=== PATIENT | female | born 1945 | race Caucasian/White ===

== ENCOUNTER 2017-11-22 16:01 | Emergency (ER) | payer MEDICARE ==
[2017-11-22] MEDS ORDERED: Naprosyn 500 MG PO ONE (16:34)
--- NOTE | 2017-11-22 16:38 | ERPHSYRPT ---
- History of Present Illness Time Seen by Provider: 11/22/17 16:26 Source: patient, family () Patient Subjective Stated Complaint: pt here for earache, stuffynose Triage Nursing Assessment: pt alert, arrived per wc, resp easy, skin w/d pink. no drainage from er Physician History: CC: right earache HX: 72 y/o patient of Dr Coleman with right ear ache all day today. She has hx of wax build up. She used drops today for pain. No fever. Recent URI symptoms. Allergic to motrin but takes alleve and requests one here. Allergies/Adverse Reactions: ibuprofen Adverse Reaction (Verified 11/22/17 16:18) Z-RACHEAL Adverse Reaction (Uncoded 11/22/17 16:18) Home Medications: Metoprolol Tartrate 50 mg [Lopressor 50 MG] 50 mg PO DAILY 03/28/13 [ History] Multivitamins,Therapeutic Tab* [Theragran Multivitamin] 1 tab PO DAILY [History] Leopold-3 Fatty Acids/Fish Oil [Fish Oil 1,000 mg Capsule] 1,200 mg PO DAILY 03/28/13 [History] Simvastatin 20Mg [Zocor 20Mg] 20 mg PO DAILY 03/28/13 [History] Alendronate Sodium 70 mg [Fosamax 70 MG] 70 mg PO UD 03/25/15 [History] Quinapril HCl [Accupril] 5 mg PO DAILY 03/25/15 [History] Alprazolam [Alprazolam] 0.25 mg DAILY 11/22/17 [History] Chlorthalidone [Chlorthalidone] 25 mg DAILY 11/22/17 [History] Hx Tetanus, Diphtheria Vaccination/Date Given: Yes Hx Influenza Vaccination/Date Given: Yes Hx Pneumococcal Vaccination/Date Given: Yes Immunizations Up to Date: Yes - Review of Systems Constitutional: No Fever, No Chills Ears, Nose, & Throat: Ear Pain (right), Nose Congestion, No Ear Discharge Abdominal/Gastrointestinal: No Nausea, No Vomiting Skin: No Rash Neurological: No Headache All Other Systems: Reviewed and Negative - Past Medical History Pertinent Past Medical History: Yes Neurological History: No Pertinent History ENT History: Other Cardiac History: High Cholesterol, Hypertension Respiratory History: Bronchitis Endocrine Medical History: No Pertinent History Musculoskeletal History: No Pertinent History GI Medical History: No Pertinent History History: No Pertinent History Psycho-Social History: No Pertinent History - Past Surgical History Past Surgical History: Yes Musculoskeletal: Orthopedic Surgery Other Surgical History: FOOT SURGERY - Social History Smoking Status: Former smoker Exposure to second hand smoke: No Drug Use: none Patient Lives Alone: No - Female History Hx Last Menstrual Period: post Hx Now: No - Nursing Vital Signs Nursing Vital Signs: Initial Vital Signs Temperature 98.2 F 11/22/17 16:11 Pulse Rate 83 11/22/17 16:11 Respiratory Rate 20 11/22/17 16:11 Blood Pressure 158/72 11/22/17 16:11 O2 Sat by Pulse Oximetry 92 L 11/22/17 16:11 Pain Scale Pain Intensity 9 - Physical Exam General Appearance: alert Eye Exam: bilateral eye: PERRL, EOMI Nasal Exam: normal inspection Throat Exam: pharynx normal Neck Exam: normal inspection, non-tender, supple Cardiovascular/Respiratory Exam: normal breath sounds, regular rate/rhythm Neurologic Exam: alert, oriented x 3, cooperative Skin Exam: warm, dry Comments: left ear wax impaction. Right ear has clear fluid and wax and drainage. Unable to visualize the TM due to drops and wax. No pain with movement of the pinna. - Course Nursing assessment & vital signs reviewed: Yes - Progress Progress Note: 11/22/17 16:38 Will empirically treat amoxil. Gonzalezve. Instr given. Counseled pt/family regarding: diagnosis, need for follow-up - Departure Time of Disposition: 16:38 Departure Disposition: Home Clinical Impression: Right otitis media Qualifiers: Otitis media type: suppurative Chronicity: acute Recurrence: not specified as recurrent Spontaneous tympanic membrane rupture: without spontaneous rupture Qualified Code(s): H66.001 - Acute suppurative otitis media without spontaneous rupture of ear drum, right ear Condition: Stable Critical Care Time: No Referrals: TEMO COLEMAN [Primary Care Provider] - Instructions: Ear Infections (Otitis Media) (DC) Additional Instructions: Rx amoxil to [facility] as directed twice a day. you received on here. Follow up with Dr Coleman as needed. No drops or instruments in the ear. Prescriptions: Amoxicillin [Amoxil] 1 cap PO TID #30 capsule
[2017-11-22 17:04] VITALS: BP 151/60; PULSE 80; O2SAT 98
[2017-11-22] MEDS ORDERED: AMOXIL 500 MG ONE (17:06)
[2017-11-22] MEDS: AMOXIL 500 MG PO ONE (17:07)
== END 2017-11-22 17:03 | disposition home or self-care (01) ==
LOC: ED 16:01
DX: H66.001 Acute suppurative otitis media without spontaneous rupture of ear drum, right ear (principal); I10 Essential (primary) hypertension; Z87.891 Personal history of nicotine dependence
CPT/HCPCS: 99283; A9270-GY

== ENCOUNTER 2019-08-30 07:57 | Day surgery (SDC) | payer MEDICARE, OTHER ==
[2019-08-30] MEDS ORDERED: Lactated Ringers 1,000 ML IV ONE (08:04)
[2019-08-30] MEDS ORDERED: Lactated Ringers 1,000 ML IV SCH (08:30)
[2019-08-30] MEDS ORDERED: SUBLIMAZE 100 MCG/2 ML ONE (09:02)
[2019-08-30] MEDS ORDERED: DIPRIVAN 200 MG/20 ML IV ONE (09:15)
[2019-08-30] MEDS ORDERED: Decadron 4 MG INJ ONE (09:27)
[2019-08-30] MEDS ORDERED: ROBINUL ONE (09:27)
[2019-08-30] MEDS ORDERED: Zofran 4 MG/2 ML VIAL ONE (09:27)
[2019-08-30] MEDS ORDERED: TORAdol 30 mg Injection ONE (09:27)
[2019-08-30 11:45] VITALS: BP 141/77; PULSE 78; O2SAT 94
--- NOTE | 2019-08-31 08:06 | OP ---
SURGERY DATE/TIME: 08/30/2019 0900 PREOPERATIVE DIAGNOSIS: Post-menopausal bleeding with thickened endometrium. POSTOPERATIVE DIAGNOSIS: Post-menopausal bleeding with thickened endometrium with endometrial polyp. PROCEDURE: Hysteroscopy, D&C with MyoSure resection of endometrial polyp. SURGEON: Case Tinajero D.O. TECHNOLOGY ANALYST: communications tech. ANESTHESIA: General sedation. ESTIMATED BLOOD LOSS: Minimal. COMPLICATIONS: None. INDICATIONS: The risks, benefits, indications and alternatives of the procedure were reviewed with the patient prior to procedure. The patient understood the risk of infection, bleeding, bowel injury, bladder injury, ureteral injury, uterine perforation that may be associated with the surgery and desires to have this surgery as a possible need to alleviate her current medical condition. DESCRIPTION OF PROCEDURE AND FINDINGS: At this point the patient is taken to the operating room, given general sedation, placed in dorsal lithotomy position. Prepped and draped in usual sterile fashion. A weighted speculum is then placed in the patient's vagina and the anterior lip of the cervix is grasped with a single tooth tenaculum. Endocervical dilators were advanced to the endocervical canal as a means to dilate the cervix. The uterus at this point was sounded to approximately 6 cm. From this point a 5 mm hysteroscope was then placed into the endocervical region where the fundal region appeared to be within normal limits. However, there appeared to be a 1 x 1 cm frothy polypoid lesion noted at the distal region of the uterus just proximal to the endocervical canal. From this point the MyoSure was then introduced into the channel of the hysteroscope and the MyoSure was used to resect the entire portion of the polypoid lesion and was removed without complication. There was no bleeding that was noted. From this point we viewed the entire uterine cavity and appeared to be within normal limits with no gross abnormalities that were noted. From this point the hysteroscope was then removed. There was a deficit of 213 cc and the cutting time was 1.38 seconds. From this point as mentioned the hysteroscope was removed. EndoCurette had been placed into the fundus of the uterus and curettage was performed in all quadrants of the uterus retrieving a mild to moderate amount of endometrial tissue. After completion of the curettage all instruments were then removed from the uterine cavity. All instruments removed from the vaginal region. The patient was then taken out of the dorsal lithotomy position, was cleaned and was then taken to the recovery room in stable condition. All instruments and laps were accounted for x2.
== END 2019-08-30 11:25 | disposition home or self-care (01) ==
LOC: SDC 07:57
PROVIDERS: ATTEND Obstetrics & Gynecology
DX: N95.0 Postmenopausal bleeding (principal); N84.0 Polyp of corpus uteri; R93.89 Abnormal findings on diagnostic imaging of other specified body structures; I10 Essential (primary) hypertension; Z79.899 Other long term (current) drug therapy
CPT/HCPCS: 58558; 99100; J1100; J1885; J2405; J2704; J3010

== ENCOUNTER 2021-11-21 05:34 | Emergency (ER) | payer MEDICARE, OTHER ==
[2021-11-21] MEDS ORDERED: MORPHINE SULFATE 2 MG INJ ONE (06:13)
[2021-11-21] MEDS ORDERED: Zofran 4 MG/2 ML VIAL ONE (06:13)
--- NOTE | 2021-11-21 06:35 | ERPHSYRPT ---
- History of Present Illness Patient Subjective Stated Complaint: Patient states she awoke at 5am to severe lower abdominal pain. Denies N/V. When asked to show nurse where the pain is, she grabbed and pointed to her right lower abdomen and right groin area. Denies pain moving or radiating anywhere. Triage Nursing Assessment: Patient started to ambulate back to ED holding her right lower abdomen and bending forward. Patient unable to ambulate all of the way back to ED and had to be assisted into a W/C. Patient gaurding right lower abdomen/groin area during assessment, grimacing, and moaning out at times. Patient having trouble concentrating to answer questions during triage but did answer appropriately. Abdomen is soft, non-distended. Timing/Duration: hour(s) (1), constant, sudden, worse Activities at Onset: sleep Quality: sharpness Abdominal Pain Onset Location: RLQ, suprapubic Pain Radiation: groin Severity of Pain-Max: severe Severity of Pain-Current: severe Modifying Factors: Worsens With: palpation, position Associated Symptoms: nausea, No vomiting Previous symptoms: same symptoms as today Hx Tetanus, Diphtheria Vaccination/Date Given: Yes Hx Influenza Vaccination/Date Given: Yes Hx Pneumococcal Vaccination/Date Given: No Immunizations Up to Date: Yes <SHAYY DINERO - Last Filed: 11/21/21 06:46> <SRIRAM WALDEN - Last Filed: 11/21/21 07:38> - History of Present Illness Time Seen by Provider: 11/21/21 06:14 Physician History: 76 years old female presented in the ER with chief complaint of right lower quadrant/suprapubic area pain off and on for almost a month and got worse this morning around 5 AM waking her up from sleep moderate to severe intensity sharp nature with some radiation to the right groin. Patient report associated mild nausea but no vomiting. Denies any urinary symptoms of increased frequency urgency or hesitancy, no hematuria. No fever or chills reported. (SHAYY DINERO) Allergies/Adverse Reactions: ibuprofen Adverse Reaction (Intermediate, Verified 11/21/21 05:42) Nausea Z-RACHEAL Adverse Reaction (Severe, Uncoded 11/21/21 05:42) Nausea and Vomiting Home Medications: Metoprolol Tartrate 50 mg [Lopressor 50 MG] 25 mg PO DAILY 03/28/13 [History] Multivitamins,Therapeutic Tab* [Theragran Multivitamin] 1 tab PO DAILY 03/28/13 [History] Simvastatin 20Mg [Zocor 20Mg] 20 mg PO DAILY 03/28/13 [History] Alendronate Sodium 70 mg [Fosamax 70 MG] 70 mg PO UD 03/25/15 [History] Quinapril HCl [Accupril] 40 mg PO DAILY 03/25/15 [History] Chlorthalidone 25 mg DAILY 11/22/17 [History] Travel Risk - International Travel Have you traveled outside of the country in past 3 weeks: No - Coronavirus Screening Are you exhibiting any of the following symptoms?: No Close contact with a COVID-19 positive Pt in past 14-21 Days: No - Vaccine Status Have you recieved a Covid-19 vaccination: Yes Academic Affairs Manager: Unknown - Vaccination Dates Dates if Unknown: unknown <SHAYY DINERO - Last Filed: 11/21/21 06:46> - Review of Systems Constitutional: No Symptoms Eyes: No Symptoms Ears, Nose, & Throat: No Symptoms Respiratory: No Symptoms Cardiac: No Symptoms Abdominal/Gastrointestinal: Abdominal Pain, Nausea Genitourinary Symptoms: No Symptoms Musculoskeletal: No Symptoms Neurological: No Symptoms Psychological: No Symptoms Endocrine: No Symptoms Hematologic/Lymphatic: No Symptoms <SHAYY DINERO - Last Filed: 11/21/21 06:46> - Past Medical History Pertinent Past Medical History: Yes Neurological History: No Pertinent History ENT History: Other Cardiac History: High Cholesterol, Hypertension Respiratory History: Bronchitis Endocrine Medical History: No Pertinent History Musculoskeletal History: No Pertinent History GI Medical History: No Pertinent History History: No Pertinent History Psycho-Social History: No Pertinent History Female Reproductive Disorders: Other - Past Surgical History Past Surgical History: Yes Neuro Surgical History: No Pertinent History Cardiac: No Pertinent History Respiratory: No Pertinent History Gastrointestinal: Exploratory Laparoscopy Genitourinary: No Pertinent History Musculoskeletal: Orthopedic Surgery Female Surgical History: Hysterectomy Other Surgical History: FOOT SURGERY, screw heel, hysterectomy in 2020 - Social History Smoking Status: Never smoker Exposure to second hand smoke: No Drug Use: none Patient Lives Alone: No - Female History Hx Now: No <BAR,SHAYY - Last Filed: 11/21/21 06:46> - Physical Exam General Appearance: no apparent distress, alert Eye Exam: PERRL/EOMI Ears, Nose, Throat Exam: normal ENT inspection Neck Exam: normal inspection, non-tender, full range of motion Respiratory Exam: normal breath sounds, lungs clear Cardiovascular Exam: regular rate/rhythm, normal heart sounds Gastrointestinal/Abdomen Exam: soft, normal bowel sounds, tenderness (Suprapubic/right lower quadrant), guarding, No rebound Back Exam: normal inspection, normal range of motion Extremity Exam: normal inspection, normal range of motion Neurologic Exam: alert, oriented x 3, cooperative Skin Exam: normal color SpO2 Interpretation: normal SpO2: 99 O2 Delivery: Room Air <SHAYY DINERO - Last Filed: 11/21/21 06:46> - Nursing Vital Signs Nursing Vital Signs: Initial Vital Signs Temperature 96.5 F 11/21/21 05:43 Pulse Rate 83 11/21/21 05:43 Respiratory Rate 22 11/21/21 05:43 Blood Pressure 143/88 11/21/21 05:43 O2 Sat by Pulse Oximetry 99 11/21/21 05:43 Pain Scale Pain Intensity 0 Ordered Tests: Active Orders 24 hr Category Date Time Status IV Insertion STAT Care 11/21/21 06:03 Active ABDOMEN AND PELVIS W/0 CONTRAS [CT] Stat Exams 11/21/21 06:04 Taken CBC W DIFF Stat Lab 11/21/21 05:50 Completed CMP Stat Lab 11/21/21 05:50 Received LIPASE Stat Lab 11/21/21 05:50 Received Lactic Acid Stat Lab 11/21/21 06:18 Completed Medication Summary Discontinued Medications Generic Name Dose Route Start Last Admin Trade Name Dianna PRN Reason Stop Dose Admin Morphine Sulfate Confirm 11/21/21 06:13 Morphine Sulfate 2 Mg/Ml Inj Administered 11/21/21 06:14 Dose 2 mg .ROUTE .STK-MED ONE Ondansetron HCl Confirm 11/21/21 06:13 Ondansetron Hcl 4 Mg/2 Ml Vial Administered 11/21/21 06:14 Dose 4 mg .ROUTE .STK-MED ONE Lab/Rad Data: Laboratory Result Diagrams 11/21/21 05:50 Laboratory Results 11/21/21 11/21/21 Range/Units 06:18 05:50 WBC 4.4 (4.0-10.5) K/mm3 RBC 4.49 (4.1-5.4) M/mm3 Hgb 13.0 (12.0-16.0) gm/dl Hct 39.3 (35-47) % MCV 87.5 (78-100) fl MCH 29.0 (26-32) pg MCHC 33.1 (32-36) g/dl RDW 13.0 (11.5-14.0) % Plt Count 147 L (150-450) K/mm3 MPV 10.0 (7.5-11.0) fl Gran % 60.7 (36.0-66.0) % Eos # (Auto) 0.12 (0-0.5) Absolute Lymphs (auto) 1.00 (1.0-4.6) Absolute Monos (auto) 0.57 (0.0-1.3) Lymphocytes % 22.9 L (24.0-44.0) % Monocytes % 13.1 H (0.0-12.0) % Eosinophils % 2.8 (0.00-5.0) % Basophils % 0.5 (0.0-0.4) % Absolute Granulocytes 2.65 (1.4-6.9) Basophils # 0.02 (0-0.4) Lactic Acid 1.5 (0.4-2.0) - Progress Progress: improved, re-examined Counseled pt/family regarding: lab results, diagnosis, need for follow-up, rad results <SRIRAM WALDEN - Last Filed: 11/21/21 07:38> - Progress Progress Note: 11/21/21 07:33 CAT scan of the abdomen and pelvis shows diverticulosis of the colon. There is no evidence of acute diverticulitis. There is a mild nonspecific bowel wall thickening involving the small bowel in the left abdomen. Under distention versus enterocolitis. No evidence of acute appendicitis. (SRIRAM WALDEN) <SHAYY DINERO - Last Filed: 11/21/21 06:46> - Departure Departure Disposition: Home Critical Care Time: No <SRIRAM WALDEN - Last Filed: 11/21/21 07:38> - Departure Clinical Impression: Abdominal pain, Enterocolitis Condition: Stable Referrals: VICKEY REESE MD [Primary Care Provider] - Follow up/PCP as directed Additional Instructions: Drink plenty of fluids. Take your antibiotics as prescribed. Call your primary care provider's office today to make arranges for follow-up appointment. Return to the emergency department if your symptoms worsen. Prescriptions: Ondansetron ODT 4 MG [Zofran Odt 4 mg] 4 mg PO Q6H PRN PRN #10 tablet PRN Reason: Vomiting Hydrocodone/APAP 5/325 [Mckenna 5/325 mg] 1 each PO Q8H PRN PRN #6 tablet MDD 3 PRN Reason: Pain Metronidazole 500 mg [Flagyl 500 MG] 500 mg PO TID #21 tablet
[2021-11-21 06:41] LABS: Absolute Neutrophil Ct (ANC) 2.65 (1.4-6.9); Basophil (Absolute #) 0.02 (0-0.4); Eosinophil % 2.8 % (0.00-5.0); Eosinophil (Absolute #) 0.12 (0-0.5); Hematocrit 39.3 % (35-47); Lymphocytes % 22.9 % (24.0-44.0); Mean Cell Volume 87.5 fl (78-100); Mean Corpuscular Hgb Concent. 33.1 g/dl (32-36); Monocyte (Absolute #) 0.57 (0.0-1.3); Monocytes % 13.1 % (0.0-12.0); Neutrophil % 60.7 % (36.0-66.0); Platelet Count 147 K/mm3 (150-450); Red Blood Count 4.49 M/mm3 (4.1-5.4); White Blood Count 4.4 K/mm3 (4.0-10.5)
[2021-11-21 07:13] VITALS: BP 124/83; PULSE 67; O2SAT 97
[2021-11-21] MEDS ORDERED: Flagyl 500 MG PO ONE (07:35)
[2021-11-21] MEDS ORDERED: Flagyl 500 MG ONE (07:36)
[2021-11-21 07:42] LABS: ANION GAP 17.6 MEQ/L (5-15); Calcium 9.4 mg/dL (8.4-10.2); Creatinine 1 1.13 mg/dL (0.52-1.04); EST GLOMERULAR FILTRATION RATE 49.5 ML/MIN; Total Protein 7.3 g/dL (6.3-8.2)
--- NOTE | 2021-11-21 08:52 | XRAY ---
Indication: Right lower quadrant pain. Multiple contiguous axial images obtained through the abdomen and pelvis without contrast. Comparison: April 23, 2021. Lung bases demonstrates mild bibasilar subsegmental atelectasis/scarring. No infiltrate or effusion. Heart is not enlarged. Noncontrasted stomach and bowel loops nonobstructed. Appendix not seen. Again minimal sigmoid diverticulosis without diverticulitis. There has been interval hysterectomy. No free fluid/air. Remaining liver, gallbladder, pancreas, spleen, adrenal glands, kidneys, ureters, and bladder are unremarkable for noncontrast exam. Again mild scattered aortoiliac calcifications without AAA. Osseous structures intact again with osteopenia, mild/moderate multilevel thoracolumbar degenerative spondylosis, small L1 Schmorl node, and minimal dextroscoliosis. No ventral or inguinal hernias. Impression: 1. Again sigmoid diverticulosis and chronic bony findings. 2. Remaining CT abdomen/pelvis without contrast exam is negative. Comment: Preliminary interpretation made by C. No critical discrepancy.
== END 2021-11-21 07:47 | disposition home or self-care (01) ==
LOC: ED 05:34
DX: K52.9 Noninfective gastroenteritis and colitis, unspecified (principal); R10.31 Right lower quadrant pain; R11.0 Nausea; E78.5 Hyperlipidemia, unspecified; I10 Essential (primary) hypertension; Z79.899 Other long term (current) drug therapy; Z79.891 Long term (current) use of opiate analgesic
CPT/HCPCS: 36000; 36415; 74176; 80053; 83605; 83690; 85025; 99284; J2270; J2405; A9270-GY

== ENCOUNTER 2021-12-19 07:15 | Day surgery (SDC) | payer MEDICARE, OTHER ==
--- NOTE | 2021-12-13 14:05 | HP ---
DATE: 12/19/2021 HISTORY OF PRESENT ILLNESS: Patient is a 75 y/o female who presents with mid to right lower quadrant pain. Patient had a hysterectomy back around [facility] that was laparoscopic at [facility] in [place]. States two weeks after that, patient has had persistent aches and pains lower abdomen at night. Reports bowel movement daily. No rectal bleeding. No prior C-scope. A HIDA and US were also ordered. US was negative. HIDA scan is still pending. PAST MEDICAL HISTORY: Hyperlipidemia, hypertension, neuropathy, anxiety, osteopenia. CURRENT MEDICATIONS: Simvastatin, quinapril, metoprolol, hydrocodone, gabapentin, chlorthalidone, alendronate. ALLERGIES: NONE REPORTED. PAST SURGERIES: Hysterectomy, foot surgery. SOCIAL HISTORY: None reported. FAMILY HISTORY: Breast cancer, hypertension. REVIEW OF SYSTEMS: CONSTITUTIONAL: Denies fever or chills. CHEST: Denies shortness of breath. CVS: Denies chest pain. ABDOMEN: Reports abdominal pain. Denies nausea, vomiting, diarrhea, constipation, or rectal bleeding. PHYSICAL EXAMINATION: GENERAL: No acute distress. CHEST: Nonlabored. No shortness of breath. CVS: Regular rate and rhythm. ABDOMEN: Soft, nontender. IMPRESSION: 1. SCREENING. PLAN: Colonoscopy with Dr. Deniz Mendoza. This report was dictated for Dr. Mendoza by Madalyn Puentes NP.
[2021-12-19] MEDS ORDERED: Lactated Ringers 1,000 ML IV ONE (07:42)
[2021-12-19] MEDS ORDERED: Lactated Ringers 1,000 ML IV SCH (08:00)
[2021-12-19] MEDS ORDERED: DIPRIVAN 200 MG/20 ML IV ONE ×2 (08:25→10:19)
[2021-12-19] MEDS ORDERED: Xylocaine-Mpf 2% 5 Ml Vial ONE (08:25)
--- NOTE | 2021-12-19 10:55 | OP ---
SURGERY DATE/TIME: 12/19/2021 1007 PREOPERATIVE DIAGNOSIS: Lower and upper mid abdominal pain. POSTOPERATIVE DIAGNOSES: 1) Mild sigmoid diverticulosis. Anticipated follow up ten years. 2) Prep was excellent. 3) Withdrawal time satisfactory. PROCEDURE: Colonoscopy complete to cecum. SURGEON: Deniz Mendoza M.D. ANESTHESIA: MAC. COMPLICATIONS: None. CONDITION: Stable. INDICATION: The patient has abdominal pain not well explained. She had a hysterectomy and she has had some discomfort right lower quadrant since that time. DESCRIPTION OF PROCEDURE: She is taken to endoscopy. Left lateral decubitus position. Anal digital examination satisfactory. Anal-rectal tone is normal. There are no hemorrhoids and the rectum is normal. The scope advanced over the cecum and was slightly redundant. There was mild sigmoid diverticulosis but there were no mucosal lesions. Base of the cecum, ileocecal valve was normal. Ascending, hepatic, transverse, splenic, descending was normal. Sigmoid mild diverticulosis. Rectum normal. Anus normal. IMPRESSION: Minimal findings. We will see her back in six weeks in the office. She had an ultrasound of the gallbladder that was negative. She does have a HIDA scan that is pending. She has not had pain in the last two days. She has two pain pills left. We will see her back in six weeks.
[2021-12-19 11:43] VITALS: BP 142/84; PULSE 78; O2SAT 98
== END 2021-12-19 11:50 | disposition home or self-care (01) ==
LOC: SDC 07:15
PROVIDERS: ATTEND Surgery
DX: K57.30 Diverticulosis of large intestine without perforation or abscess without bleeding (principal); R10.31 Right lower quadrant pain
CPT/HCPCS: 99100; J2704